=== PATIENT | female | born 1960 | race Caucasian/White ===

== ENCOUNTER 2021-02-24 12:57 | Inpatient (IN) ==
[2021-02-24] MEDS ORDERED: Ipratropium/Albuterol Neb 3 ML IH ONE (13:50)
[2021-02-24 14:05] LABS: VBG HCO3 24 mEq/L (21-27); VBG PCO2 45 mmHg (41-51); VBG PH 7.34 pH Units (7.32-7.42); VBG PO2 47 mmHg (25-50)
[2021-02-24 14:08] LABS: Basophils % 0.2 %; Hematocrit 38.5 % (35.3-44.9); Hemoglobin 13.1 g/dL (11.5-15.4); Immature Granulocytes % 0.6 % (0-4); Lymphocytes # 0.8 K/mcL (0.6-4.6); Lymphocytes % 7.9 %; Mean Corpuscular Hemoglobin 30.4 pg (28.0-33.3); Mean Corpuscular Volume 89.3 fL (83.0-100.0); Mean Platelet Volume 10.1 fL (9.4-12.4); Monocytes # 0.2 K/mcL (0.0-1.3); Monocytes % 2.3 %; Neutrophils # 8.5 K/mcL (1.6-8.9); Platelet Count 238 K/mcL (140-400); Red Blood Count 4.31 M/mcL (3.82-4.97); Red Cell Distribution Width 12.1 % (11.5-14.5); White Blood Count 9.6 K/mcL (4.3-11.1)
[2021-02-24 14:39] LABS: Alanine Aminotransferase 29 Units/L (7-52); Albumin 3.8 g/dL (3.5-5.7); Albumin/Globulin Ratio 1.1 (1.1-2.2); Alkaline Phosphatase 74 Units/L (34-104); Aspartate Amino Transferase 52 Units/L (13-39); BUN/Creatinine Ratio 14 (6-26); Bilirubin,Total 0.7 mg/dL (0.3-1.0); Blood Urea Nitrogen 10 mg/dL (6-20); Calcium 8.7 mg/dL (8.6-10.3); Carbon Dioxide 25 mEq/L (23-29); Chloride 98 mEq/L (98-107); Globulin 3.6 g/dL (2.4-3.5); Glucose 119 mg/dL (70-105); Osmolality,Calculated 276 (280-300); Potassium 3.4 mEq/L (3.5-5.1); Sodium 133 mEq/L (136-145); Total Protein 7.4 g/dL (6.4-8.9); Troponin I < 0.03 ng/mL (< 0.04); eGFR For African Americans > 60 (> 60); eGFR For Non-African Americans > 60 (> 60)
[2021-02-24 14:44] LABS: Platelet Estimate Normal (Normal); Reactive Lymphocytes Present (Not Present)
[2021-02-24 15:27] LABS: Influenza A PCR Negative (Negative); Influenza B PCR Negative (Negative); Resp. Syncytial Virus PCR Negative (Negative)
[2021-02-24 15:40] LABS: SARS-CoV-2 by PCR (In House) Positive (Negative)
[2021-02-24] MEDS ORDERED: Ipratropium 1 PUFF INHALER IH PRN (19:42)
[2021-02-24] MEDS ORDERED: Ondansetron 4 MG/2 ML VIAL IVP PRN (20:51)
[2021-02-24] MEDS ORDERED: Naloxone 0.4 MG/ML INJ IVP PRN (20:51)
[2021-02-24] MEDS ORDERED: Potassium Chloride Elixir 20 MEQ/15 ML UDC PO ONE (21:19)
[2021-02-25] MEDS ORDERED: Isovue-370 500 ML BOTTLE IVP ONE (08:18)
[2021-02-25] MEDS: Cholecalciferol (D-3) 1,000 UNIT (25MCG) TABLET PO SCH (08:19)
[2021-02-25] MEDS: Zinc Sulfate 220 MG CAPSULE PO SCH (08:19)
[2021-02-25] MEDS: Ascorbic Acid 500 MG TABLET PO SCH (08:19)
[2021-02-25 09:42] LABS: BUN/Creatinine Ratio 20 (6-26); Blood Urea Nitrogen 11 mg/dL (6-20); Calcium 8.7 mg/dL (8.6-10.3); Carbon Dioxide 21 mEq/L (23-29); Chloride 103 mEq/L (98-107); Glucose 144 mg/dL (70-105); Osmolality,Calculated 280 (280-300); Potassium 4.6 mEq/L (3.5-5.1); Sodium 134 mEq/L (136-145); eGFR For African Americans > 60 (> 60); eGFR For Non-African Americans > 60 (> 60)
[2021-02-25 12:03] LABS: Hematocrit 38.3 % (35.3-44.9); Hemoglobin 12.6 g/dL (11.5-15.4); Mean Corpuscular HGB Conc 32.9 g/dL (31.6-35.5); Mean Corpuscular Hemoglobin 29.7 pg (28.0-33.3); Mean Corpuscular Volume 90.3 fL (83.0-100.0); Platelet Count 292 K/mcL (140-400); Red Blood Count 4.24 M/mcL (3.82-4.97); Red Cell Distribution Width 12.1 % (11.5-14.5); White Blood Count 5.8 K/mcL (4.3-11.1)
[2021-02-25 12:27] LABS: C-Reactive Protein 186 mg/L (Less than 10)
[2021-02-25 12:44] LABS: Ferritin 601 ng/mL (10-120)
[2021-02-25] MEDS: Furosemide 20 MG/2 ML VIAL IVP SCH (14:03)
[2021-02-26 02:50] LABS: Basophils % 0.2 %; Immature Granulocytes % 0.5 % (0-4)
[2021-02-26 02:52] LABS: Eosinophils % 0.2 %; Hematocrit 40.1 % (35.3-44.9); Hemoglobin 13.3 g/dL (11.5-15.4); Immature Platelets 9.2 % (1.1-6.1); Lymphocytes # 0.7 K/mcL (0.6-4.6); Lymphocytes % 7.5 %; Mean Corpuscular HGB Conc 33.2 g/dL (31.6-35.5); Mean Corpuscular Hemoglobin 30.3 pg (28.0-33.3); Mean Corpuscular Volume 91.3 fL (83.0-100.0); Mean Platelet Volume 11.6 fL (9.4-12.4); Monocytes # 0.4 K/mcL (0.0-1.3); Monocytes % 4.1 %; Neutrophils # 8.3 K/mcL (1.6-8.9); Platelet Count 214 K/mcL (140-400); Red Blood Count 4.39 M/mcL (3.82-4.97); Red Cell Distribution Width 12.1 % (11.5-14.5); Segmented Neutrophils % 87.5 %; White Blood Count 9.5 K/mcL (4.3-11.1)
[2021-02-26 03:02] LABS: Alanine Aminotransferase 102 Units/L (7-52); Albumin 3.7 g/dL (3.5-5.7); Albumin/Globulin Ratio 1.1 (1.1-2.2); Alkaline Phosphatase 69 Units/L (34-104); Aspartate Amino Transferase 143 Units/L (13-39); BUN/Creatinine Ratio 31 (6-26); Bilirubin,Total 0.6 mg/dL (0.3-1.0); Blood Urea Nitrogen 20 mg/dL (6-20); Calcium 9.2 mg/dL (8.6-10.3); Carbon Dioxide 23 mEq/L (23-29); Chloride 102 mEq/L (98-107); Globulin 3.3 g/dL (2.4-3.5); Glucose 119 mg/dL (70-105); Osmolality,Calculated 286 (280-300); Potassium 4.1 mEq/L (3.5-5.1); Sodium 136 mEq/L (136-145); eGFR For African Americans > 60 (> 60); eGFR For Non-African Americans > 60 (> 60)
[2021-02-26] MEDS: *HR* Enoxaparin 40 MG/0.4 ML SYRINGE SQ SCH (06:35)
[2021-02-26] MEDS: Zinc Sulfate 220 MG CAPSULE PO SCH (08:30)
[2021-02-26] MEDS: Cholecalciferol (D-3) 1,000 UNIT (25MCG) TABLET PO SCH (08:30)
[2021-02-26] MEDS: Ascorbic Acid 500 MG TABLET PO SCH (08:30)
[2021-02-26] MEDS: Furosemide 20 MG/2 ML VIAL IVP SCH ×2 (08:31→08:43)
[2021-02-26] MEDS ORDERED: dexAMETHasone 4 MG TABLET PO SCH (16:30)
[2021-02-27 03:13] LABS: Basophils % 0.1 %; Hemoglobin 12.1 g/dL (11.5-15.4); Immature Granulocytes % 0.9 % (0-4); Lymphocytes # 0.5 K/mcL (0.6-4.6); Mean Corpuscular HGB Conc 32.7 g/dL (31.6-35.5); Mean Corpuscular Hemoglobin 29.9 pg (28.0-33.3); Mean Corpuscular Volume 91.4 fL (83.0-100.0); Mean Platelet Volume 9.6 fL (9.4-12.4); Monocytes # 0.2 K/mcL (0.0-1.3); Monocytes % 2.6 %; Neutrophils # 8.4 K/mcL (1.6-8.9); Platelet Count 220 K/mcL (140-400); Red Blood Count 4.05 M/mcL (3.82-4.97); Segmented Neutrophils % 91.4 %; White Blood Count 9.2 K/mcL (4.3-11.1)
[2021-02-27 03:38] LABS: Alanine Aminotransferase 104 Units/L (7-52); Albumin 3.3 g/dL (3.5-5.7); Albumin/Globulin Ratio 1.1 (1.1-2.2); Alkaline Phosphatase 74 Units/L (34-104); Aspartate Amino Transferase 79 Units/L (13-39); BUN/Creatinine Ratio 27 (6-26); Bilirubin,Total 0.8 mg/dL (0.3-1.0); Blood Urea Nitrogen 15 mg/dL (6-20); Calcium 8.8 mg/dL (8.6-10.3); Carbon Dioxide 26 mEq/L (23-29); Chloride 101 mEq/L (98-107); Globulin 3.1 g/dL (2.4-3.5); Glucose 144 mg/dL (70-105); Osmolality,Calculated 283 (280-300); Potassium 4.3 mEq/L (3.5-5.1); Sodium 135 mEq/L (136-145); Total Protein 6.4 g/dL (6.4-8.9); eGFR For African Americans > 60 (> 60); eGFR For Non-African Americans > 60 (> 60)
[2021-02-27] MEDS: *HR* Enoxaparin 40 MG/0.4 ML SYRINGE SQ SCH (05:51)
[2021-02-27] MEDS: dexAMETHasone 4 MG TABLET PO SCH (10:05)
[2021-02-27] MEDS: Cholecalciferol (D-3) 1,000 UNIT (25MCG) TABLET PO SCH (10:06)
[2021-02-27] MEDS: Zinc Sulfate 220 MG CAPSULE PO SCH (10:06)
[2021-02-27] MEDS: Furosemide 20 MG/2 ML VIAL IVP SCH (10:06)
[2021-02-27] MEDS: Ascorbic Acid 500 MG TABLET PO SCH (10:06)
[2021-02-28 05:27] LABS: Basophils % 0.3 %; Hematocrit 37.5 % (35.3-44.9); Hemoglobin 12.4 g/dL (11.5-15.4); Immature Granulocytes % 1.6 % (0-4); Lymphocytes # 0.7 K/mcL (0.6-4.6); Lymphocytes % 8.3 %; Mean Corpuscular HGB Conc 33.1 g/dL (31.6-35.5); Mean Corpuscular Hemoglobin 29.7 pg (28.0-33.3); Mean Corpuscular Volume 89.9 fL (83.0-100.0); Mean Platelet Volume 9.9 fL (9.4-12.4); Monocytes # 0.4 K/mcL (0.0-1.3); Monocytes % 5.2 %; Neutrophils # 6.7 K/mcL (1.6-8.9); Platelet Count 233 K/mcL (140-400); Red Blood Count 4.17 M/mcL (3.82-4.97); Red Cell Distribution Width 11.9 % (11.5-14.5); Segmented Neutrophils % 84.6 %; White Blood Count 7.9 K/mcL (4.3-11.1)
[2021-02-28 05:47] LABS: Alanine Aminotransferase 76 Units/L (7-52); Albumin 3.3 g/dL (3.5-5.7); Alkaline Phosphatase 70 Units/L (34-104); Aspartate Amino Transferase 37 Units/L (13-39); BUN/Creatinine Ratio 28 (6-26); Bilirubin,Total 0.6 mg/dL (0.3-1.0); Blood Urea Nitrogen 19 mg/dL (6-20); Calcium 8.9 mg/dL (8.6-10.3); Carbon Dioxide 28 mEq/L (23-29); Chloride 99 mEq/L (98-107); Globulin 3.3 g/dL (2.4-3.5); Glucose 130 mg/dL (70-105); Osmolality,Calculated 288 (280-300); Potassium 4.2 mEq/L (3.5-5.1); Sodium 137 mEq/L (136-145); Total Protein 6.6 g/dL (6.4-8.9); eGFR For African Americans > 60 (> 60); eGFR For Non-African Americans > 60 (> 60)
[2021-02-28] MEDS: *HR* Enoxaparin 40 MG/0.4 ML SYRINGE SQ SCH (05:53)
[2021-02-28 08:53] LABS: Ferritin 482 ng/mL (10-120)
[2021-02-28 09:44] LABS: D-Dimer 75704 ng/mLFEU (0-500)
[2021-02-28 09:45] LABS: Fibrinogen 252 mg/dL (169-393)
[2021-02-28] MEDS: Cholecalciferol (D-3) 1,000 UNIT (25MCG) TABLET PO SCH (10:18)
[2021-02-28] MEDS: dexAMETHasone 4 MG TABLET PO SCH (10:18)
[2021-02-28] MEDS: Furosemide 20 MG/2 ML VIAL IVP SCH (10:18)
[2021-02-28] MEDS: Zinc Sulfate 220 MG CAPSULE PO SCH (10:18)
[2021-02-28] MEDS: Ascorbic Acid 500 MG TABLET PO SCH (10:18)
[2021-02-28] MEDS ORDERED: Isovue-370 500 ML BOTTLE IVP ONE (13:29)
[2021-02-28] MEDS ORDERED: *HR* Enoxaparin 60 MG/0.6 ML SYRINGE SQ ONE (13:45)
[2021-02-28] MEDS ORDERED: SODIUM CHLORIDE 0.9% IVPB ONE (17:45)
[2021-02-28] MEDS ORDERED: TOCILIZUMAB IVPB ONE (17:45)
[2021-02-28 20:19] LABS: C-Reactive Protein 73 mg/L (Less than 10)
[2021-02-28] MEDS: *HR* Enoxaparin 100 MG/ML SYRINGE SQ SCH (21:55)
[2021-03-01 06:50] LABS: Alanine Aminotransferase 66 Units/L (7-52); Albumin 3.3 g/dL (3.5-5.7); Albumin/Globulin Ratio 1.1 (1.1-2.2); Alkaline Phosphatase 67 Units/L (34-104); Aspartate Amino Transferase 33 Units/L (13-39); BUN/Creatinine Ratio 36 (6-26); Bilirubin,Total 0.6 mg/dL (0.3-1.0); Blood Urea Nitrogen 20 mg/dL (6-20); Calcium 8.9 mg/dL (8.6-10.3); Carbon Dioxide 24 mEq/L (23-29); Chloride 101 mEq/L (98-107); Glucose 112 mg/dL (70-105); Osmolality,Calculated 283 (280-300); Potassium 4.2 mEq/L (3.5-5.1); Sodium 135 mEq/L (136-145); Total Protein 6.3 g/dL (6.4-8.9); eGFR For African Americans > 60 (> 60); eGFR For Non-African Americans > 60 (> 60)
[2021-03-01] MEDS: *HR* Enoxaparin 100 MG/ML SYRINGE SQ SCH ×2 (09:08→20:53)
[2021-03-01] MEDS: Cholecalciferol (D-3) 1,000 UNIT (25MCG) TABLET PO SCH (09:09)
[2021-03-01] MEDS: dexAMETHasone 4 MG TABLET PO SCH (09:09)
[2021-03-01] MEDS: Zinc Sulfate 220 MG CAPSULE PO SCH (09:09)
[2021-03-01] MEDS: Ascorbic Acid 500 MG TABLET PO SCH (09:09)
[2021-03-01] MEDS: Furosemide 20 MG/2 ML VIAL IVP SCH (09:10)
[2021-03-01 12:25] LABS: Basophils % 0.2 %; Eosinophils # 0.1 K/mcL (0.0-0.6); Eosinophils % 0.4 %; Hemoglobin 13.7 g/dL (11.5-15.4); Immature Granulocytes % 1.2 % (0-4); Lymphocytes # 0.9 K/mcL (0.6-4.6); Mean Corpuscular HGB Conc 33.4 g/dL (31.6-35.5); Mean Corpuscular Hemoglobin 29.9 pg (28.0-33.3); Mean Corpuscular Volume 89.5 fL (83.0-100.0); Mean Platelet Volume 9.7 fL (9.4-12.4); Monocytes # 0.6 K/mcL (0.0-1.3); Monocytes % 4.5 %; Neutrophils # 12.5 K/mcL (1.6-8.9); Platelet Count 300 K/mcL (140-400); Red Blood Count 4.58 M/mcL (3.82-4.97); Red Cell Distribution Width 11.9 % (11.5-14.5); Segmented Neutrophils % 87.7 %
[2021-03-01 12:29] LABS: White Blood Count 14.2 K/mcL (4.3-11.1)
[2021-03-01 12:50] LABS: Fibrinogen 229 mg/dL (169-393)
[2021-03-01 12:53] LABS: D-Dimer 43950 ng/mLFEU (0-500)
[2021-03-02 06:30] LABS: Basophils % 0.2 %; Eosinophils % 0.2 %; Hematocrit 41.2 % (35.3-44.9); Hemoglobin 13.7 g/dL (11.5-15.4); Immature Granulocytes % 1.9 % (0-4); Lymphocytes # 1.1 K/mcL (0.6-4.6); Lymphocytes % 10.4 %; Mean Corpuscular HGB Conc 33.3 g/dL (31.6-35.5); Mean Corpuscular Volume 90.2 fL (83.0-100.0); Mean Platelet Volume 9.3 fL (9.4-12.4); Monocytes # 0.7 K/mcL (0.0-1.3); Monocytes % 6.7 %; Neutrophils # 8.5 K/mcL (1.6-8.9); Platelet Count 304 K/mcL (140-400); Red Blood Count 4.57 M/mcL (3.82-4.97); Red Cell Distribution Width 11.9 % (11.5-14.5); Segmented Neutrophils % 80.6 %; White Blood Count 10.5 K/mcL (4.3-11.1)
[2021-03-02 06:49] LABS: Alanine Aminotransferase 62 Units/L (7-52); Albumin 3.5 g/dL (3.5-5.7); Albumin/Globulin Ratio 1.2 (1.1-2.2); Alkaline Phosphatase 65 Units/L (34-104); Aspartate Amino Transferase 29 Units/L (13-39); BUN/Creatinine Ratio 32 (6-26); Bilirubin,Total 0.6 mg/dL (0.3-1.0); Blood Urea Nitrogen 19 mg/dL (6-20); Carbon Dioxide 29 mEq/L (23-29); Chloride 100 mEq/L (98-107); Glucose 99 mg/dL (70-105); Osmolality,Calculated 284 (280-300); Potassium 4.3 mEq/L (3.5-5.1); Sodium 136 mEq/L (136-145); Total Protein 6.5 g/dL (6.4-8.9); eGFR For African Americans > 60 (> 60); eGFR For Non-African Americans > 60 (> 60)
[2021-03-02] MEDS: Cholecalciferol (D-3) 1,000 UNIT (25MCG) TABLET PO SCH (07:50)
[2021-03-02] MEDS: dexAMETHasone 4 MG TABLET PO SCH (07:50)
[2021-03-02] MEDS: Zinc Sulfate 220 MG CAPSULE PO SCH (07:50)
[2021-03-02] MEDS: Ascorbic Acid 500 MG TABLET PO SCH (07:50)
[2021-03-02] MEDS: Furosemide 20 MG/2 ML VIAL IVP SCH (07:51)
[2021-03-02] MEDS: *HR* Enoxaparin 100 MG/ML SYRINGE SQ SCH ×2 (08:21→21:09)
[2021-03-03] MEDS ORDERED: dexAMETHasone 4 MG TABLET PO SCH (09:00)
[2021-03-03] MEDS: Cholecalciferol (D-3) 1,000 UNIT (25MCG) TABLET PO SCH (09:17)
[2021-03-03] MEDS: Ascorbic Acid 500 MG TABLET PO SCH (09:17)
[2021-03-03] MEDS: Zinc Sulfate 220 MG CAPSULE PO SCH (09:17)
[2021-03-03] MEDS: *HR* Enoxaparin 100 MG/ML SYRINGE SQ SCH (09:18)
[2021-03-03 10:03] LABS: Basophils % 0.2 %; Eosinophils % 0.4 %; Hematocrit 43.4 % (35.3-44.9); Hemoglobin 14.3 g/dL (11.5-15.4); Immature Granulocytes % 1.8 % (0-4); Lymphocytes # 1.6 K/mcL (0.6-4.6); Lymphocytes % 15.3 %; Mean Corpuscular HGB Conc 32.9 g/dL (31.6-35.5); Mean Corpuscular Hemoglobin 29.9 pg (28.0-33.3); Mean Corpuscular Volume 90.8 fL (83.0-100.0); Mean Platelet Volume 10.1 fL (9.4-12.4); Monocytes # 0.8 K/mcL (0.0-1.3); Monocytes % 7.4 %; Neutrophils # 7.7 K/mcL (1.6-8.9); Platelet Count 320 K/mcL (140-400); Red Blood Count 4.78 M/mcL (3.82-4.97); Segmented Neutrophils % 74.9 %; White Blood Count 10.3 K/mcL (4.3-11.1)
[2021-03-03 10:22] LABS: Fibrinogen 215 mg/dL (169-393)
[2021-03-03 10:23] LABS: D-Dimer 5985 ng/mLFEU (0-500)
[2021-03-03 10:35] LABS: Alanine Aminotransferase 82 Units/L (7-52); Albumin 3.7 g/dL (3.5-5.7); Albumin/Globulin Ratio 1.2 (1.1-2.2); Alkaline Phosphatase 67 Units/L (34-104); Aspartate Amino Transferase 53 Units/L (13-39); BUN/Creatinine Ratio 33 (6-26); Bilirubin,Total 0.9 mg/dL (0.3-1.0); Blood Urea Nitrogen 22 mg/dL (6-20); Calcium 9.4 mg/dL (8.6-10.3); Carbon Dioxide 27 mEq/L (23-29); Chloride 99 mEq/L (98-107); Glucose 72 mg/dL (70-105); Lactate Dehydrogenase 403 Units/L (140-271); Osmolality,Calculated 284 (280-300); Potassium 4.4 mEq/L (3.5-5.1); Sodium 136 mEq/L (136-145); Total Protein 6.7 g/dL (6.4-8.9); eGFR For African Americans > 60 (> 60); eGFR For Non-African Americans > 60 (> 60)
[2021-03-03 13:13] VITALS: BP 116/74; PULSE 65; TEMP 97.6
[2021-03-03 14:26] VITALS: O2SAT 98
== END 2021-03-03 20:00 | disposition home or self-care (01) | DRG 177 ==
LOC: EMEROOARM 12:57 → SUATTDRO 21:26 → 3NENU 21:26
PROVIDERS: ADMIT Student in an Organized Health Care Education/Training Program; ATTEND Family Medicine